=== PATIENT | male | born 1955 | race Caucasian/White ===

== ENCOUNTER → 2018-01-30 | Outpatient (CLI) | payer OTHER | LOC: LABPAT 15:11 | PROVIDERS: ATTEND Orthopaedic Surgery | DX: Z01.812 Encounter for preprocedural laboratory examination (principal) | CPT/HCPCS: 87070 ==

== ENCOUNTER → 2018-02-13 | Outpatient (CLI) | payer OTHER ==
[2018-02-13 08:00] LABS: Basophils # (A) 0.1 k/uL (0-0.2); Basophils % (A) 1 %; Eosinophils # (A) 0.4 k/uL (0-0.7); Eosinophils % (A) 6 %; HCT 49.9 % (39.0-53.0); HGB 16.4 gm/dL (13.0-17.5); Lymphocytes # (A) 2.6 k/uL (1.0-4.8); Lymphocytes % (A) 41 %; MCHC 32.9 g/dL (31.0-37.0); MCV 91.2 fL (80.0-100.0); Monocytes # (A) 0.4 k/uL (0-1.0); Monocytes % (A) 7 %; Neutrophils # (A) 2.8 k/uL (1.3-7.7); Neutrophils % (A) 43 %; Platelet Count 286 k/uL (150-450); RBC 5.47 m/uL (4.30-5.90); RDW 13.2 % (11.5-15.5); WBC 6.5 k/uL (3.8-10.6)
[2018-02-13 08:11] LABS: INR 1.1 (<1.2); Partial Thromboplastin Time 22.9 sec (22.0-30.0); Prothrombin Time 10.3 sec (9.0-12.0)
[2018-02-13 08:30] LABS: Potassium 4.7 mmol/L (3.5-5.1)
== END | disposition home or self-care (01) ==
LOC: LABPAT 07:27
PROVIDERS: ATTEND Orthopaedic Surgery
DX: Z01.812 Encounter for preprocedural laboratory examination (principal); M17.11 Unilateral primary osteoarthritis, right knee
CPT/HCPCS: 36415; 80051; 85025; 85610; 85730

== ENCOUNTER 2018-02-17 08:54 | Inpatient (IN) | payer OTHER ==
[2018-02-10 15:49] VITALS: BMI 29.8
--- NOTE | 2018-02-16 12:19 | HP ---
HISTORY AND PHYSICAL REASON FOR ADMISSION: Surgery scheduled for 02/17/2018 HISTORY OF PRESENT ILLNESS: Abimael Celeste is a 62-year-old patient seen with symptomatic right knee osteoarthritis. We discussed treatment options. He elected to proceed with right total knee arthroplasty. Consent regarding the procedure was obtained. Medical clearance was provided by SUKH Niño. PAST MEDICAL HISTORY: Noncontributory. PAST SURGICAL HISTORY: Neck surgery, right knee arthroscopy. DAILY MEDICATIONS: None. SOCIAL HISTORY: The patient smokes 1 pack of cigarettes daily. PHYSICAL EXAMINATION: Evaluation of the right knee range of motion is -3/4 to 115 degrees. Tenderness along the medial joint line. There is crepitus along the medial and patellofemoral compartments. Range of motion. Pain with patellofemoral compression. Ligaments stable. Hip rotation without pain. Distal neurovascular exam intact. RADIOGRAPHS: Radiographs of the right knee reveal severe osteoarthritic changes. IMPRESSION: 1. Right knee osteoarthritis. 2. Tobacco use. PLAN: Right total knee arthroplasty. Surgery is scheduled for 02/17/18. MMODL / IJN: [id number] /
[~2018-02-17 08:54] MED LIST: ACETAMINOPHEN TAB 500 MG TAB PO ONE; DEXAMETHASONE SOD PHOSPHATE 10 MG/ML 1 ML VIAL IV ONE; MELOXICAM 7.5 MG TAB PO ONE; ONDANSETRON 4 MG/2 ML VIAL IVP ONE; SCOPOLAMINE 1.5MG/72HR PATCH TRANSDERM ONE; TRANEXAMIC ACID 1,000 MG in SODIUM CHLORIDE 0.9% 50 ML IVPB ONE; ceFAZolin IN SWFI 2 GM/20 ML SYRINGE IVP ONE
[2018-02-17] MEDS ORDERED: LIDOCAINE 1% 20 ML VIAL (10MG/ML) FOR IV START INTRADERMA ONE (10:16)
[2018-02-17] MEDS: LACTATED RINGERS 1,000 ML IV SCH ×2 (10:17→14:51)
[2018-02-17] MEDS: MIDAZOLAM 2 MG/2 ML VIAL IV PRN ×2 (10:29→10:59)
[2018-02-17] MEDS: fentaNYL (PF) 50 MCG/ML 2 ML AMP IV PRN ×2 (10:29→10:59)
[2018-02-17] MEDS ORDERED: ROPIVACAINE 246.25 MG, EPINEPHrine 0.5 MG, KETOROLAC 30 MG, cloNIDine HCL/PF 80 MCG, WA... MISCELLANE ONE ×5 (10:56)
--- NOTE | 2018-02-17 10:56 | P.ONQ ---
Anesthesiology Proc Note - PNB - Peripheral Nerve Block Performed Right Adductor Canal Infusion Time Out Performed: Yes Procedure Start Time: 10:28 Indication: Acute Post-Operative Pain, Analgesia Specifically requested for management of pain by DrBrody: Darius Patino Sedation Type: Sedate with meaningful contact maintained Preparation: Sterile Prep Position: Supine Catheter: Indwelling Needle Size: 100mm (4") Needle Gauge: 18 Technique: Ultrasound Injectate: 0.5% Ropivacaine (see comment for volume) (20) Blood Aspirated: No Pain Paresthesia on Injection Noted: No Resistance on Injection: Normal Events: Uneventful and Well Tolerated
[2018-02-17] MEDS ORDERED: MIDAZOLAM 2 MG/2 ML VIAL ONE (11:01)
[2018-02-17] MEDS ORDERED: PROPOFOL 10 MG/ML 20 ML VIAL IV ONE (11:01)
[2018-02-17] MEDS ORDERED: TRANEXAMIC ACID 1,000 MG/10 ML VIAL ONE (11:01)
[2018-02-17] MEDS ORDERED: fentaNYL (PF) 50 MCG/ML 2 ML AMP ONE (11:01)
[2018-02-17] MEDS ORDERED: SODIUM CHLORIDE 0.9% 100 ML BAG ONE (11:01)
[2018-02-17] MEDS ORDERED: ceFAZolin 3,000 MG in SODIUM CHLORIDE 0.9% IRRIGATIO 3,000 ML IRRIGATION ONE (11:35)
--- NOTE | 2018-02-17 13:29 | P.OP ---
Date of Procedure: 02/17/18 Preoperative Diagnosis: Right knee osteoarthritis Postoperative Diagnosis: Right knee osteoarthritis Procedure(s) Performed: Right total knee arthroplasty Implants: 1. Tonja persona size 11 right standard cemented cruciate retaining femur 2. Tonja persona size H right cemented tibial tray 3. Tonja persona 10 mm medial congruent polyethylene tibial insert 4. Tonja persona 38 mm all polyethylene cemented patella Anesthesia: regional (Adductor canal catheter), local, spinal Surgeon: Darius Patino Printer Slotter Operator #1: Paul Quiroga Estimated Blood Loss (ml): 50 Pathology: none sent Condition: stable Disposition: PACU Indications for Procedure: 62-year-old patient seen with symptomatic right knee osteoarthritis. After treatment options were discussed, he elected to proceed with total knee arthroplasty Operative Findings: see description of procedure Description of Procedure: Patient was taken to the operative suite after having an adductor canal catheter placed by the department of anesthesia. Patient underwent a spinal anesthetic by the department of anesthesia. Patient was given preoperative IV intake antibiotics and TXA. A well-padded tourniquet was placed about the right lower extremity. The lower extremity was then prepped and draped in the normal sterile orthopedic fashion. The extremity was elevated, a tourniquet was insufflated to 350. A standard anterior incision was made sharply through skin. Dissection was taken down through the subcutaneous soft tissues down to the extensor mechanism. A medial arthrotomy was performed, patella was everted and knee was flexed. There was advanced osteoarthritis noted. A proximal tibial cutting guide was positioned. Proximal tibial cut was made. A distal intramedullary femoral cutting guide was positioned, distal femoral cut made. We placed the appropriate sizing guide and selected the appropriate size. A distal 4-in-1 femoral cutting block was positioned, distal femoral cuts were made. We now placed a trial femoral component into position, along with an appropriate size tibial tray and insert. We now took the knee through range of motion and had full extension good flexion and good overall soft tissue balance noted. The patella was everted and a flush cut made with patellar quad tendon. We templated the patella, appropriate drill holes were made. An appropriate trial patella was positioned, knee was taken through full range of motion with the patella tracking very nicely. The trial patella was removed. Drill holes were made through the femoral component. All trial components were removed after marking off the appropriate rotation of the tibia. Retractors were now positioned along the proximal tibia. An appropriate keel punch was made with the appropriate size tibial guide. At this point appropriate size implants were chosen and opened. The joint was irrigated copiously with pulse lavage mechanical irrigation. The posterior capsule was infiltrated with local analgesic. We mixed antibiotic methylmethacrylate. Once the methyl methacrylate was ready, the tibial component was cemented into place removing any excess methylmethacrylate. The femoral component was cemented into place removing the removing any excess methylmethacrylate. We then inserted the appropriate size polyethylene tibial insert. We made sure that it was locked into position. We took the knee into full extension, and then back in a flexion making sure we had removed any excess methylmethacrylate. The patellar component was then cemented down and secured with clamp. Excess methylmethacrylate removed. We kept the knee in full extension, patellar clamp in position until methylmethacrylate had hardened. Once it had hardened the patellar clamp was removed. The knee was taken through full range of motion. The patella tracked nicely. There was good soft tissue balancing. The tourniquet was now released. Additional hemostasis was achieved via electrocautery. A second gram of TXA was given. The wound was irrigated with pulse lavage mechanical irrigation. The superficial soft tissues were infiltrated local analgesic. The extensor mechanism was repaired with Vicryl. We checked the repair with range of motion and it was stable. The subcutaneous soft tissues were repaired with Vicryl in layers. The skin was approximated with pernio/Dermabond. Sterile dressings were applied followed by loose web roll and Gilles bandage. The patient was transferred to a bed, and taken to recovery in stable and satisfactory condition. Heron DUTTA assisted with the procedure.
[2018-02-17] MEDS ORDERED: HYDROmorphone 1 MG/ML 1 ML SYRINGE IVP PRN (13:30)
[2018-02-17] MEDS ORDERED: HYDROmorphone 0.5 MG/0.5 ML SYRINGE IVP PRN ×2 (13:30)
[2018-02-17] MEDS ORDERED: NALOXONE 0.4 MG/ML 1 ML VIAL IV PRN (13:30)
[2018-02-17] MEDS ORDERED: HYDROcodone/APAP 7.5-325MG 1 EACH TAB PO PRN (13:30)
[2018-02-17] MEDS ORDERED: ONDANSETRON 4 MG/2 ML VIAL IVP PRN (13:30)
[2018-02-17] MEDS ORDERED: ROPIVACAINE 1,100 MG, SODIUM CHLORIDE 0.9% 330 ML MISCELLANE PRN ×2 (13:35)
--- NOTE | 2018-02-17 13:50 | XR ---
EXAMINATION TYPE: XR knee limited RT DATE OF EXAM: 02/17/2018 COMPARISON: NONE TECHNIQUE: Two views submitted HISTORY: Post op FINDINGS: There is postsurgical change in near anatomic alignment. There is soft tissue edema and emphysema. IMPRESSION: 1. Postoperative change. Appears in near-anatomic alignment
[2018-02-17] MEDS ORDERED: LACTATED RINGERS 1,000 ML IV ONE (14:32)
--- NOTE | 2018-02-17 15:05 | P.CONS ---
History of Present Illness - Reason for Consult Consult date: 02/17/18 Medical management - Chief Complaint Left knee pain - History of Present Illness 62-year-old male with no significant past medical history. He has been having increasingly progressive pain due to right knee osteoarthritis. Because of that he had total right knee arthroplasty today. He denied having any chest pain, shortness of breath, recent illness, fevers or chills, nausea or vomiting. He is currently hungry and asking for food. Review of Systems 12 point review of system performed, negative except HPI Past Medical History Past Medical History: Eye Disorder, Osteoarthritis (OA) Additional Past Medical History / Comment(s): RT EAR VISION DECREASED. History of Any Multi-Drug Resistant Organisms: None Reported Additional Past Surgical History / Comment(s): BONE SPUR ON NECK. Past Anesthesia/Blood Transfusion Reactions: Motion Sickness Smoking Status: Current every day smoker - Past Family History Father Family Medical History: Cancer Mother Family Medical History: Cancer Medications and Allergies Home Medications Medication Instructions Recorded Confirmed Type No Known Home Medications 02/10/18 02/17/18 History Allergies Allergy/AdvReac Type Severity Reaction Status Date / Time No Known Allergies Allergy Verified 02/17/18 13:56 Physical Exam Vitals: Vital Signs Temp Pulse Resp BP BP Pulse Ox 02/17/18 14:16 60 16 103/55 92 L 02/17/18 14:00 62 12 109/59 93 L 02/17/18 13:45 58 L 16 109/53 92 L 02/17/18 13:33 98.0 F 68 16 121/61 93 L 02/17/18 10:50 61 18 134/68 97 02/17/18 10:09 98.4 F 64 18 132/60 94 L Intake and Output 02/17/18 02/17/18 02/17/18 06:59 14:59 22:59 Intake Total 1001 Output Total 50 Balance 951 Intake: IV 1001 Output: Estimated Blood Loss 50 Other: Weight 99.79 kg Constitutional: No acute distress, conversant, pleasant Eyes:Anicteric sclerae, moist conjunctiva, no lid-lag, PERRLA, ENMT: Oropharynx clear, no erythema, exudates Neck: Supple, FROM, no masses, or JVD, No carotid bruits, No thyromegaly Lungs: Clear to auscultation, Clear to percussion, Normal respiratory effort, no accessory muscle use Cardiovascular: Heart regular in rate and rhythm, No murmurs, gallops, or rubs, No peripheral edema Abdominal: Soft, Nontender, no guarding, rebound or rigidity, Normoactive bowel sounds, No hepatomegaly, No splenomegaly, No palpable mass Skin: Normal temperature, tone, texture, turgor, no induration, No subcutaneous nodules, No rash, lesions, No ulcers Extremities: Brace applied over the right knee, No digital cyanosis, No clubbing , Pedal pulses intact and symmetrical, Radial pulses intact and symmetrical, No calf tenderness Psychiatric: Alert and oriented to person, place and time, appropriate affect, intact judgement Neuro: Muscles Strength 5/5 in all 4 extremities, Sensation to light touch grossly present throughout, Cranial nerves II-XII grossly intact, no focal sensory deficits Assessment and Plan Plan: Severe right knee osteoarthritis status post total arthroplasty Management per surgery, pain control Smoking Counseled to quit Currently on Chantix DVT prophylaxis Lovenox
[2018-02-17] MEDS: ceFAZolin IN SWFI 2 GM/20 ML SYRINGE IVP SCH ×2 (16:35→22:16)
[2018-02-17] MEDS: traMADol 50 MG TAB PO SCH ×2 (17:18→22:16)
[2018-02-17] MEDS: HYDROcodone/APAP 7.5-325MG 1 EACH TAB PO PRN (18:28)
[2018-02-17] MEDS: ENOXAPARIN 30 MG/0.3 ML SYRINGE SQ SCH (19:51)
[2018-02-17] MEDS: SENNOSIDES-DOCUSATE SODIUM 1 EACH TAB PO SCH (19:51)
[2018-02-18] MEDS: LACTATED RINGERS 1,000 ML IV SCH ×3 (02:18→17:56)
[2018-02-18] MEDS: HYDROcodone/APAP 7.5-325MG 1 EACH TAB PO PRN ×2 (07:14→20:39)
[2018-02-18 08:07] LABS: Basophils % (A) 0 %; Eosinophils # (A) 0.1 k/uL (0-0.7); Eosinophils % (A) 0 %; HCT 43.9 % (39.0-53.0); HGB 14.9 gm/dL (13.0-17.5); Lymphocytes # (A) 1.9 k/uL (1.0-4.8); Lymphocytes % (A) 10 %; MCH 30.8 pg (25.0-35.0); MCV 90.8 fL (80.0-100.0); Mean Platelet Volume 7.6; Monocytes # (A) 1.1 k/uL (0-1.0); Monocytes % (A) 6 %; Neutrophils # (A) 15.8 k/uL (1.3-7.7); Neutrophils % (A) 83 %; Platelet Count 249 k/uL (150-450); RBC 4.84 m/uL (4.30-5.90); RDW 13.2 % (11.5-15.5); WBC 19.1 k/uL (3.8-10.6)
[2018-02-18] MEDS: traMADol 50 MG TAB PO SCH ×4 (09:22→23:40)
[2018-02-18] MEDS: MELOXICAM 7.5 MG TAB PO SCH (09:23)
[2018-02-18] MEDS: FAMOTIDINE 20 MG TAB PO SCH (09:23)
[2018-02-18] MEDS: ENOXAPARIN 30 MG/0.3 ML SYRINGE SQ SCH ×2 (09:23→20:38)
--- NOTE | 2018-02-18 11:02 | P.PN ---
Subjective Progress Note Date: 02/18/18 Principal diagnosis: Status post right total knee arthroplasty Patient seen today resting in his hospital bed, he appears comfortable. He is done well with therapy at this time. He denies any chest pain, shortness of breath or fever chills. Objective - Vital Signs Vital signs: Vital Signs Temp 97.6 F 02/18/18 09:17 Pulse 52 L 02/18/18 09:17 Resp 16 02/18/18 09:17 BP 124/63 02/18/18 09:17 Pulse Ox 97 02/18/18 09:17 Intake & Output 02/17/18 02/18/18 02/18/18 18:59 06:59 18:59 Intake Total 1001 1500 Output Total 50 500 Balance 951 1000 Weight 99.79 kg Intake: IV 1001 Oral 1500 Output: Urine 500 Estimated Blood Loss 50 Other: # Voids 1 - Exam Right lower extremity: Incision is clean, dry, and intact. The prineo tape is in good condition. There is minimal soft tissue swelling and ecchymosis surrounding the medial and lateral aspects of the incision. Calf is soft, no tenderness with palpation. Plantar flexion, dorsiflexion, EHL, FHL are intact. Sensory exam to light touch throughout the extremity is intact, dorsal pedis pulses 2+. - Labs CBC & Chem 7: 02/18/18 06:59 Labs: Abnormal Lab Results - Last 24 Hours (Table) 02/18/18 Range/Units 06:59 WBC 19.1 H (3.8-10.6) k/uL Neutrophils # 15.8 H (1.3-7.7) k/uL Monocytes # 1.1 H (0-1.0) k/uL Assessment and Plan Plan: Assessment: 1. Postop day 1 status post right total knee arthroplasty Plan: Pain control, continue Xarelto medication. August DVT prophylaxis, continue Lovenox during inpatient stay. Aspirin 325 mg twice a day after discharge Wound care instructions were discussed Icing and elevating techniques discussed Encourage incentive spirometer Medical recommendations Discharge planning: Patient will be discharged home tomorrow Time with Patient: Less than 30
--- NOTE | 2018-02-18 11:05 | P.DS ---
Providers Date of admission: 02/17/18 08:54 Expected date of discharge: 02/19/18 Attending physician: Darius Patino Consults: 02/17/18 13:30 Consult Physician Routine Consulting Provider: Maryellen Morton Consult Reason/Comments: Medical management Do you want consulting provider notified?: Yes Primary care physician: [facility] Hospital Course: Date of admission: 02/17/2018 Date of discharge: 02/19/2018 Admission diagnosis: Status post right total knee arthroplasty Discharge diagnosis: Same Attending physician: Dr. Patino Surgical procedures: Right total knee arthroplasty Brief history: Patient is a 62-year-old male with a history of progressive primary right knee osteoarthritis. At this point patient has failed conservative treatment measures and has opted to proceed with a elective right total knee arthroplasty. Hospital course: Details of patient's surgery can be found in operative report. Patient tolerated the procedure well and was subsequently transported to orthopedic floor. Patient's orthopeidc and medical care was provided daily. Patient had daily laboratory tests performed for evaluation of overall blood counts. Patient had daily physical therapy to include strengthening range of motion as well as education with walker ambulation. Patient had daily CPM usage as part of their physical therapy program. Patient was treated with Lovenox for their postoperative DVT prophylaxis during their inpatient stay. Patient was noted to have a relatively uneventful postoperative course. Patient reported satisfactory pain control with oral pain medications by postoperative day 0. Patient showed satisfactory progress with physical therapy. Patient moved steadily through the program and had no difficulty meeting the goals by postoperative day 2. Given patient's otherwise satisfactory course and having met physical therapy goals, plan is to discharge patient home on postoperative day 2. Discharge condition/disposition: Patient will be discharged home in stable condition. Discharge medications: Instructions are given on resumption of patient's normal daily medications per primary care recommendation, in addition patient will be prescribed Dillon 7.5 mg/325 mg, tramadol 50 mg, Colace 100 mg, aspirin 325 mg. Discharge instructions: 1. Wound care and infection precautions, keep incision dry and covered while showering, no lotions, creams, moisturizers. No soaking, tubs, pools, hottubs. Do not scrub over the incision. 2. Weight-bear as tolerated with walker / cane until follow-up. 3. Ice and elevate when necessary. Do not exceed 20 minutes per hour with ice pack. 4. Utilize compression sleeve until seen at first follow up appointment. 5. Visiting nursing care. 6. Home physical therapy including home CPM. 7. Pain meds and anticoagulants per prescription. 8. Pain medication has potential to cause constipation. Increase oral fluid and fiber intake. Contact primary care provider if you have not had a bowel movement within 48 hours after discharge 9. No anti-inflammatory medication until discussed at first post operative visit, this including Motrin, Aleve, Mobic, Diclofenac 10. Follow up in office at 2 weeks postop with Heron Quiroga PA-C 11. Follow up with your primary care doctor 7-10 days after discharge. 12. Contact [facility] with any questions, . Procedures: Right total knee arthroplasty Patient Condition at Discharge: Good Plan - Discharge Summary Discharge Rx Participant: No New Discharge Prescriptions: New Aspirin 325 mg PO BID #60 tab Docusate [Colace] 100 mg PO DAILY #30 capsule HYDROcodone/APAP 7.5-325MG [Dillon 7.5] 1 - 2 each PO Q6HR PRN #56 tab PRN Reason: Pain traMADol HCl [Ultram] 50 mg PO Q6H PRN #28 tab PRN Reason: Pain Discharge Medication List Aspirin 325 mg PO BID #60 tab 02/18/18 [Rx] Docusate [Colace] 100 mg PO DAILY #30 capsule 02/18/18 [Rx] HYDROcodone/APAP 7.5-325MG [Dillon 7.5] 1 - 2 each PO Q6HR PRN #56 tab 02/18/18 [ Rx] traMADol HCl [Ultram] 50 mg PO Q6H PRN #28 tab 02/18/18 [Rx] Follow up Appointment(s)/Referral(s): Paul Quiroga PAC [PHYSICIAN [employer]] - 2 Weeks Activity/Diet/Wound Care/Special Instructions: Orthopedic Discharge Instructions: 1. Wound care and infection precautions, keep incision dry and covered while showering, no lotions, creams, moisturizers. No soaking, pools, hot tubs. Do not scrub over incision. 2. Weight-bear as tolerated with walker / cane until follow-up. 3. Ice and elevate when necessary. Do not exceed 20 minutes per hour with ice pack. 4. Utilize compression sleeve until seen at first follow up appointment. 5. Visiting nursing care. 6. Home physical therapy including home CPM. 7. Pain meds and anticoagulants per prescription. 8. Pain medication has potential to cause constipation. Increase oral fluid and fiber intake. Contact primary care provider if you have not had a bowel movement within 48 hours after discharge. 9. No anti-inflammatory medication until discussed at first post operative visit, this including Motrin, Aleve, Mobic, Diclofenac. 10. Follow up in office at 2 weeks postop with Heron Quiroga PA-C 11. Follow up with your primary care doctor 7-10 days after discharge. 12. Contact [facility] with any questions, . Discharge Disposition: HOME WITH HOME HEALTH SERVICES
--- NOTE | 2018-02-18 12:23 | P.PN ---
Progress Note - Text Progress Note Date: 02/18/18 Postoperative day # 1 status post right total knee arthroplasty, under spinal anesthesia, and adductor canal catheter placed for postoperative analgesia, currently at ropivacaine 0.2% 8 mL per hour and continuous infusion, visual analogue scale is 5/10, patient using oral pain medication for breakthrough pain. Assessment and plan= Acute postoperative pain, adductor canal catheter for pain control, pain is well controlled we'll continue the same management.
[2018-02-18] MEDS: SENNOSIDES-DOCUSATE SODIUM 1 EACH TAB PO SCH (20:40)
[2018-02-19] MEDS: LACTATED RINGERS 1,000 ML IV SCH ×3 (06:38→12:18)
[2018-02-19] MEDS: HYDROcodone/APAP 7.5-325MG 1 EACH TAB PO PRN ×3 (07:10→18:56)
[2018-02-19 07:52] VITALS: BP 135/73; PULSE 70; RESP 18; TEMP 98.2
[2018-02-19] MEDS: MELOXICAM 7.5 MG TAB PO SCH (08:16)
[2018-02-19] MEDS: FAMOTIDINE 20 MG TAB PO SCH (08:16)
[2018-02-19] MEDS: traMADol 50 MG TAB PO SCH ×3 (08:17→17:49)
[2018-02-19] MEDS: ENOXAPARIN 30 MG/0.3 ML SYRINGE SQ SCH (08:17)
--- NOTE | 2018-02-19 08:49 | P.PN ---
Progress Note - Text Progress Note Date: 02/19/18 S: The patient has no complaints. They deny shortness of breath or chest pain. O: Afebrile, vital signs stable Homans negative right lower extremity Distal neurovascular status intact in the operative extremity Incision clean, dry , and intact A/P: Postoperative day 2 status post right total knee arthroplasty Medical management Discharge home today Medications as prescribed
--- NOTE | 2018-02-19 18:24 | P.PN ---
Progress Note - Text The patient is status post right adductor canal catheter placement. The catheter was placed for postoperative pain control, status post total right knee arthroplasty. Ropivacaine 0.2% was infusing at[ 8] mLs per hour. The patient has no complaints of[ right ] lower extremity numbness or weakness. Patient's VAS score is[1 ]-10. Assessment: Patient's adductor canal catheter was discontinued earlier this afternoon. Pain medicines will be provided to the patient by the service.
== END 2018-02-19 19:11 | disposition home health service (06) | DRG 470 ==
LOC: 2ORMAIN 08:54 → 3SUR 13:19
PROVIDERS: ADMIT Orthopaedic Surgery; ATTEND Orthopaedic Surgery
PROC: 0SRC0J9 Replacement of Right Knee Joint with Synthetic Substitute, Cemented, Open Approach (ICD-10-PCS; principal; 2018-02-17 11:00)
DX: M17.11 Unilateral primary osteoarthritis, right knee (principal); F17.210 Nicotine dependence, cigarettes, uncomplicated; Z71.6 Tobacco abuse counseling; H54.7 Unspecified visual loss; Z79.899 Other long term (current) drug therapy
CPT/HCPCS: 85025; 88300